=== PATIENT | male | born 1965 | race Caucasian/White ===

== ENCOUNTER 2017-10-02 14:24 | Emergency (ER) | payer SELFPAY ==
[~2017-10-02] VITALS: Ht 162.6 cm; Wt 65.0 kg
[~2017-10-02 14:24] MED LIST: BACT800T5 PO; MUPI2OIN TOPICAL
[2017-10-02 14:26] VITALS: BP 168/92; PULSE 119; RESP 15; TEMP 98.8; O2SAT 96
[2017-10-02 16:00] VITALS: BP 137/90; PULSE 84; RESP 17; O2SAT 94
[2017-10-02] MEDS ORDERED: ASPIRIN 81 MG CHEW TAB PO ONE (16:00)
[2017-10-02] MEDS ORDERED: SODIUM CHLORIDE 0.9% FLUSH 10 ML FLUSH IVF PRN (16:00)
[2017-10-02] MEDS ORDERED: MORPHINE SULFATE 4 MG/ML INJ IV PUSH ONE (16:00)
[2017-10-02 16:24] LABS: AUTOMATED NEUTROPHIL # 7.1 TH/MM3 (1.8-7.7); BASOPHIL # 0.1 TH/MM3 (0-0.2); EOSINOPHIL # 0.1 TH/MM3 (0-0.4); EOSINOPHIL % 0.8 % (0.0-4.0); HEMOGLOBIN 15.2 GM/DL (13.0-17.0); LYMPH % 14.7 % (9.0-44.0); LYMPHOCYTE # 1.4 TH/MM3 (1.0-4.8); MEAN CELL VOLUME 93.1 FL (80.0-100.0); MEAN CORPUSCULAR HEMOGLOBIN 32.2 PG (27.0-34.0); MEAN CORPUSCULAR HGB CONC 34.6 % (32.0-36.0); MEAN PLATELET VOLUME 9.9 FL (7.0-11.0); MONOCYTE # 0.7 TH/MM3 (0-0.9); NEUT % 76.5 % (16.0-70.0); PLATELET COUNT 114 TH/MM3 (150-450); RED BLOOD COUNT 4.73 MIL/MM3 (4.50-5.90); RED CELL DISTRIBUTION WIDTH 15.2 % (11.6-17.2); WHITE BLOOD COUNT 9.3 TH/MM3 (4.0-11.0)
[2017-10-02 16:35] LABS: BICARBONATE 26.1 MEQ/L (21.0-32.0); BLOOD UREA NITROGEN 10 MG/DL (7-18); CALCIUM 8.8 MG/DL (8.5-10.1); CHLORIDE 93 MEQ/L (98-107); CREATININE 0.82 MG/DL (0.60-1.30); GLOMERULAR FILTRATION RATE 99 ML/MIN (>89); GLUCOSE,RANDOM 109 MG/DL (74-106); MAGNESIUM 1.7 MG/DL (1.5-2.5); SODIUM (NA) 133 MEQ/L (136-145)
[2017-10-02 16:39] LABS: TROPONIN I LESS THAN 0.02 NG/ML (0.02-0.05)
--- NOTE | 2017-10-02 16:44 | PD ---
HPI . Chest pain Chief Complaint: Chest Pain Time Seen by Provider: 16:00 Travel History International Travel<30 days: No Contact w/Intl Traveler<30days: No Traveled to known affect area: No History of Present Illness HPI Patient presents with a chief complaint of left-sided chest pain onset was a week ago. The pain is sharp. It is rated 8/10. He reports an associated cough. Pain is exacerbated by He denies any history of lung disease. He does smoke a pack a day. PFSH Past Medical History Medical History: Denies Significant Hx Cancer: No Cardiovascular Problems: No Diabetes: No Diminished Hearing: No Glaucoma: No Hepatitis: No Hiatal Hernia: No Hypertension: No Respiratory: No Thyroid Disease: No Past Surgical History Pacemaker: No Tonsillectomy: Yes Other Surgery: Yes Social History Alcohol Use: Yes (6-8 BEERS/DAY, [place]) Tobacco Use: Yes (2 PPD) Substance Use: Yes Allergies-Medications (Allergen,Severity, Reaction): Coded Allergies: No Known Allergies (Verified Adverse Reaction, Unknown, 10/02/17) Reported Meds & Prescriptions Reported Meds & Active Scripts Active No Active Prescriptions or Reported Medications Review of Systems Except as stated in HPI: all other systems reviewed are Neg General / Constitutional: No: Fever, Chills Cardiovascular: Positive: Chest Pain or Discomfort Respiratory: Positive: Cough, No: Shortness of Breath Physical Exam Narrative GENERAL: This patient looks well. SKIN: warm/dry. Normal color and turgor. HEAD: Normocephalic. Atraumatic. EYES: Pupils equal and round. No scleral icterus. No injection or drainage. ENT: No nasal bleeding or discharge. Mucous membranes pink and moist. NECK: Trachea midline. Full range of motion without pain.. CARDIOVASCULAR: Regular rate and rhythm. Heart sounds normal. RESPIRATORY: No accessory muscle use. Clear to auscultation. Breath sounds equal bilaterally. No chest wall tenderness. GASTROINTESTINAL: Abdomen soft. Nontender. Bowel sounds present. Nondistended. MUSCULOSKELETAL: No obvious deformities. No calf swelling or tenderness. NEUROLOGICAL: Awake and alert. No obvious cranial nerve deficits. Motor grossly within normal limits. Normal speech. PSYCHIATRIC: Appropriate mood and affect; insight and judgment normal. Data Data Last Documented VS Vital Signs Date Time Temp Pulse Resp B/P (MAP) Pulse Ox O2 Delivery O2 Flow Rate FiO2 10/02/17 16:00 84 17 137/90 (106) 94 Room Air 10/02/17 14:26 98.8 Orders Orders Electrocardiogram (10/02/17 ) Electrocardiogram (10/02/17 16:00) Basic Metabolic Panel (Bmp) (10/02/17 16:00) B-Type Natriuretic Peptide (10/02/17 16:00) Complete Blood Count With Diff (10/02/17 16:00) D-Dimer (10/02/17 16:00) Magnesium (Mg) (10/02/17 16:00) Prothrombin Time / Inr (Pt) (10/02/17 16:00) Act Partial Throm Time (Ptt) (10/02/17 16:00) Troponin I (10/02/17 16:00) Chest, Single Ap (10/02/17 16:00) Ecg Monitoring (10/02/17 16:00) Iv Access Insert/Monitor (10/02/17 16:00) Oximetry (10/02/17 16:00) Aspirin Chew (Aspirin Chew) (10/02/17 16:00) Morphine Inj (Morphine Inj) (10/02/17 16:00) Sodium Chloride 0.9% Flush (Ns Flush) (10/02/17 16:00) Ct Pulmonary Angiogram (10/02/17 17:01) Iohexol 350 Inj (Omnipaque 350 Inj) (10/02/17 17:45) Labs Laboratory Tests Test 10/02/17 16:08 White Blood Count 9.3 TH/MM3 Red Blood Count 4.73 MIL/MM3 Hemoglobin 15.2 GM/DL Hematocrit 44.0 % Mean Corpuscular Volume 93.1 FL Mean Corpuscular Hemoglobin 32.2 PG Mean Corpuscular Hemoglobin Concent 34.6 % Red Cell Distribution Width 15.2 % Platelet Count 114 TH/MM3 Mean Platelet Volume 9.9 FL Neutrophils (%) (Auto) 76.5 % Lymphocytes (%) (Auto) 14.7 % Monocytes (%) (Auto) 7.0 % Eosinophils (%) (Auto) 0.8 % Basophils (%) (Auto) 1.0 % Neutrophils # (Auto) 7.1 TH/MM3 Lymphocytes # (Auto) 1.4 TH/MM3 Monocytes # (Auto) 0.7 TH/MM3 Eosinophils # (Auto) 0.1 TH/MM3 Basophils # (Auto) 0.1 TH/MM3 CBC Comment DIFF FINAL Differential Comment Prothrombin Time 9.6 SEC Prothromb Time International Ratio 0.9 RATIO Activated Partial Thromboplast Time 28.4 SEC D-Dimer Quantitative (PE/DVT) 6.05 MG/L FEU Blood Urea Nitrogen 10 MG/DL Creatinine 0.82 MG/DL Random Glucose 109 MG/DL Calcium Level 8.8 MG/DL Magnesium Level 1.7 MG/DL Sodium Level 133 MEQ/L Potassium Level 3.4 MEQ/L Chloride Level 93 MEQ/L Carbon Dioxide Level 26.1 MEQ/L Anion Gap 14 MEQ/L Estimat Glomerular Filtration Rate 99 ML/MIN Troponin I LESS THAN 0.02 NG/ML B-Type Natriuretic Peptide 5 PG/ML MDM Medical Decision Making Medical Screen Exam Complete: Yes Emergency Medical Condition: Yes Interpretation(s) EKG shows a sinus rhythm with a rate of 100. He has LVH. No ST segment elevation or depression. Differential Diagnosis Differential diagnosis of chest pain includes but is not limited to musculoskeletal pain, pulmonary embolism, acute coronary syndrome, pneumonia, pleurisy Narrative Course This patient presents with left-sided chest pain for a week. He looks well. CBC & BMP Diagram 10/02/17 16:08 Calcium Level 8.8, Magnesium Level 1.7 Coags are normal. trop < 0.02 BNP normal. D-dimer 6.05. CT for PE has been ordered. Last Impressions CT Angiography 10/02/17 1701 Signed Impressions: Service Date/Time: Monday, October 02, 2017 17:44 - CONCLUSION: 1. No evidence of pulmonary embolus. 2. 4 cm area of mildly cavitary consolidation in the lateral left lower lobe. 3. Mild to moderate upper lobe predominant pulmonary emphysema. 4. Several tiny nodular densities scattered in the upper lobes. Recommend [address] Virgil Oliveira MD Chest X-Ray 10/02/17 1600 Signed Impressions: Service Date/Time: Monday, October 02, 2017 16:11 - CONCLUSION: Mild lateral left lung base opacity indicating atelectasis versus mild consolidation. Minimal blunting left costophrenic sulcus indicating possible small left pleural effusion. Virgil Oliveira MD This patient is stable for d/c. He has had left-sided chest pain for a week. Diagnosis Primary Impression: Chest pain Qualified Codes: R07.9 - Chest pain, unspecified Additional Impression: COPD (chronic obstructive pulmonary disease) Qualified Codes: J44.9 - Chronic obstructive pulmonary disease, unspecified Referrals: [facility] Patient Instructions: Chest Pain (DC), General Instructions Additional Instructions: Follow-up at [facility] for further evaluation and treatment of emphysema Med/Other Pt SpecificInfo: Prescription(s) given Scripts Tramadol (Ultram) 50 Mg Tab 50 MG PO Q4H Y for PAIN, #12 TAB 0 Refills Prov: Vero Cerrato MD 10/02/17 Disposition: DISCHARGE HOME Condition: Stable Vero Cerrato MD Oct 02, 2017 16:44
[2017-10-02 16:48] LABS: D-DIMER 6.05 MG/L FEU (0.00-0.50); INTERNATIONAL NORMALIZED RATIO 0.9 RATIO; PROTHROMBIN TIME - PATIENT 9.6 SEC (9.8-11.6)
--- NOTE | 2017-10-02 16:52 | RADRPT ---
EXAM DATE/TIME: 10/02/2017 16:11 [facility] COMPARISON: No previous studies available for comparison. INDICATIONS : Shortness of breath. MEDICAL HISTORY : None. SURGICAL HISTORY : None. ENCOUNTER: Initial ACUITY: 1 day PAIN SCORE: 0/10 LOCATION: Bilateral chest FINDINGS: Single AP view of the chest. Patchy opacity at the left lung base indicating atelectasis versus mild consolidation. Minimally blunted left costophrenic sulcus. No evidence of pneumothorax. Cardiomediast inal silhouette within normal limits.. CONCLUSION: Mild lateral left lung base opacity indicating atelectasis versus mild consolidation. Min imal blunting left costophrenic sulcus indicating possible small left pleural effusion. Virgil Oliveira MD on October 02, 2017 at 16:48 Board Certified Radiologist. This report was verified electronically.
[2017-10-02] MEDS ORDERED: IOHEXOL 350 MG/ML 10 ML VIAL (for RAD DIAG) IVCONTRAST ONE (17:45)
--- NOTE | 2017-10-02 18:15 | RADRPT ---
EXAM DATE/TIME: 10/02/2017 17:44 [facility] COMPARISON: No previous studies available for comparison. INDICATIONS : Intermittent left sided chest pain. IV CONTRAST: 91 cc Omnipaque 350 (iohexol) IV RADIATION DOSE: 10.87 CTDIvol (mGy) MEDICAL HISTORY : ETOH abuse SURGICAL HISTORY : None. ENCOUNTER: Initial ACUITY: 1 week PAIN SCALE: 3/10 LOCATION: chest TECHNIQUE: Volumetric scanning of the chest was performed using a pulmonary embolism protocol MIP images were re constructed. Using automated exposure control and adjustment of the mA and/or kV according to patien t size, radiation dose was kept as low as reasonably achievable to obtain optimal diagnostic quality images. DICOM format image data is available electronically for review and comparison. Follow-up recommendations for detected pulmonary nodules are based at a minimum on nodule size and pa tient risk factors according to Fleischner Society Guidelines. FINDINGS: PULMONARY ARTERIES: No filling defects are seen in the pulmonary arteries through the segmental level. LUNGS: Mild/moderate pulmonary parenchymal emphysema. Upper lobe predominance. Area of mildly cavitary pleur al-based lateral left lower lobe consolidation is seen on image #90 measuring 4.3 x 2.8 cm. Several s cattered less than 5 mm nodular densities are seen in the upper lobes bilaterally.. PLEURAE: Small left pleural effusion. MEDIASTINUM: Coronary artery calcifications. Thoracic aorta diameter within normal limits. No enlarged lymph nodes . MUSCULOSKELETAL: Within normal limits for patient age. MISCELLANEOUS: Hepatic steatosis noted. CONCLUSION: 1. No evidence of pulmonary embolus. 2. 4 cm area of mildly cavitary consolidation in the lateral left lower lobe. 3. Mild to moderate upper lobe predominant pulmonary emphysema. 4. Several tiny nodular densities scattered in the upper lobes. Recommend 6 month followup noncontras myrna CT. Virgil Oliveira MD on October 02, 2017 at 18:08 Board Certified Radiologist. This report was verified electronically.
[2017-10-02] MEDS ORDERED: TRAM50 PO (18:59)
--- NOTE | 2017-10-03 19:37 | EKG ---
Date Performed: 10/02/2017 Time Performed: 14:58:29 PTAGE: 51 years EKG: SINUS TACHYCARDIA WITH SHORT DE INTERVAL VOLTAGE CRITERIA FOR LVH Since previous tracing, n o significant change noted ABNORMAL ECG PREVIOUS TRACING : 11/29/2012 22.56.28 DOCTOR: Devon Romero Interpretating Date/Time 10/03/2017 19:35:48
== END 2017-10-02 19:09 | disposition home or self-care (01) ==
LOC: NEPE 14:24
DX: R07.89 Other chest pain (principal); J43.9 Emphysema, unspecified; F17.210 Nicotine dependence, cigarettes, uncomplicated; R00.0 Tachycardia, unspecified; R06.02 Shortness of breath
CPT/HCPCS: 71045; 71275; 80048; 83735; 83880; 84484; 85025; 85379; 85610; 85730; 93005; 96374; 99285; J2270; Q9967